=== PATIENT | female | born 1980 | race Two or more races ===

== ENCOUNTER 2018-02-25 17:53 | Emergency (ER) | payer MEDICAID, MEDICARE, OTHER ==
[~2018-02-25] VITALS: Ht 160 cm; Wt 75.0 kg
[2018-02-25] MEDS ORDERED: IBUPROFEN 600MG TABLET PO ONE (23:45)
[2018-02-26 02:00] VITALS: BP 118/86
== END 2018-02-26 02:25 | disposition home or self-care (01) ==
LOC: ER 17:53
DX: S20.02XA Contusion of left breast, initial encounter (principal); S80.02XA Contusion of left knee, initial encounter; V49.88XA Car occupant (driver) (passenger) injured in other specified transport accidents, initial encounter; Y93.89 Activity, other specified; Y92.89 Other specified places as the place of occurrence of the external cause; Y99.8 Other external cause status
CPT/HCPCS: 71045; 73562; 81025; 93005; 99284